=== PATIENT | female | born 1990 | race Caucasian/White ===

== ENCOUNTER 2016-07-12 07:10 | Outpatient (CLI) | payer BC, OTHER | END 2016-07-12 09:13 | disposition home or self-care (01) | LOC: GENOP 07:10 | DX: O32.1XX0 Maternal care for breech presentation, not applicable or unspecified (principal); Z3A.37 37 weeks gestation of pregnancy | CPT/HCPCS: 76815; 96360; 96372; J3105 ==

== ENCOUNTER 2016-07-26 14:55 | Outpatient (CLI) | payer BC ==
[2016-07-26 15:42] LABS: HEMOGLOBIN 12.4 gm/dl (12.3-15.3); RED BLOOD COUNT 3.92 M/UL (4.00-5.10); WHITE BLOOD COUNT 8.2 K/UL (4.5-11.0)
== END 2016-07-26 16:16 | disposition home or self-care (01) ==
LOC: GENOP 14:55
PROVIDERS: Obstetrics & Gynecology
DX: Z01.812 Encounter for preprocedural laboratory examination (principal); O32.1XX0 Maternal care for breech presentation, not applicable or unspecified; Z3A.00 Weeks of gestation of pregnancy not specified
CPT/HCPCS: 36415; 81001; 85025; J7120

== ENCOUNTER 2016-07-27 08:41 | Inpatient (IN) | payer BC, OTHER | END 2016-07-27 18:07 | disposition short-term general hospital (02) | DRG 765 | LOC: OB 08:41 | PROVIDERS: ADMIT Obstetrics & Gynecology | PROC: 10D00Z1 Extraction of Products of Conception, Low, Open Approach (ICD-10-PCS; principal; 2016-07-27 13:33) | DX: O32.1XX0 Maternal care for breech presentation, not applicable or unspecified (principal); O98.313 Other infections with a predominantly sexual mode of transmission complicating pregnancy, third trimester; Z3A.39 39 weeks gestation of pregnancy; Z37.0 Single live birth; A63.0 Anogenital (venereal) warts | CPT/HCPCS: 82800; C9113; J0690; J2270; J2405; J2550; J2590; J2765; J3430; J7120 ==